=== PATIENT | male | born 1990 | race Caucasian/White ===

== ENCOUNTER 2019-06-25 11:35 | Emergency (ER) | payer MEDICAID ==
[~2019-06-25] VITALS: Wt 68.0 kg
[~2019-06-25 11:35] MED LIST: CEPH-443 PO; CIPR500T4 PO; HYDR-4011 PO; IBUP800T48 PO
[2019-06-25] MEDS ORDERED: morphine 4 MG/ML VIAL IV STA (13:16)
[2019-06-25] MEDS ORDERED: SOD CHLORIDE 0.9% 1,000 ML IV ONE (13:30)
[2019-06-25] MEDS ORDERED: FAMOTIDINE 20 MG INJ IV ONE (13:30)
[2019-06-25] MEDS ORDERED: KETOROLAC 30 MG INJ IV STA (14:33)
[2019-06-25] MEDS ORDERED: IOHEXOL 300MG/ML 150 ML BTL ONE (14:47)
[2019-06-25] MEDS ORDERED: SOD CHLORIDE 0.9% 100 ML ONE (14:47)
[2019-06-25] MEDS ORDERED: PIPER-TAZO 3.375 GM IV (PMX) 100 ML IVPB ONE (15:30)
[2019-06-25 16:31] VITALS: BP 107/59; PULSE 68; RESP 17
== END 2019-06-25 16:31 | disposition home or self-care (01) ==
LOC: FTE 11:35
DX: L04.1 Acute lymphadenitis of trunk (principal); F17.210 Nicotine dependence, cigarettes, uncomplicated
CPT/HCPCS: 74177; 80053; 81001; 85025; 96361; 96365; 96375; J1885; J2270; J2543; J7030; Q9967; Z7502; Z7610